=== PATIENT | female | born 1960 | race Caucasian/White ===

== ENCOUNTER 2021-08-03 07:34 | Inpatient (IN) | payer BC ==
[~2021-08-03] VITALS: Ht 162.6 cm; Wt 105.3 kg
[~2021-08-03 07:34] MED LIST: ATEN100; ATEN50 PO; FURO40 PO; IBUP800; LEVSOD200; THYR60; TRIHYD253B
[2021-08-03 08:25] LABS: Calcium, Ionized (POC) 1.22 mmol/L (1.10-1.46); Chloride (POC) 101 mmol/L (98-108); Creatinine (POC) 0.6 mg/dL (0.6-1.0); Glucose (ISTAT POC) 168 mg/dL (70-99); Potassium (POC) 3.6 mmol/L (3.5-5.5); Sodium (POC) 140 mmol/L (135-148); Total CO2 (POC) 28 mmol/L (21-32)
[2021-08-03 08:29] LABS: BASOPHILS ABSOLUTE AUTO 0.05 K/mm3 (0.00-0.23); BASOPHILS PERCENT AUTO 1 % (0-2); EOSINOPHILS ABSOLUTE AUTO 0.12 K/mm3 (0.00-0.68); EOSINOPHILS PERCENT AUTO 2 % (0-6); Hematocrit 42.5 % (33.0-51.0); Hemoglobin 13.9 g/dL (11.5-16.0); IMMATURE GRAN ABSOLUTE AUTO 0.03 K/mm3 (0.00-0.10); IMMATURE GRAN PERCENT AUTO 0 % (0-1); LYMPHOCYTES ABSOLUTE AUTO 1.33 K/mm3 (0.84-5.20); LYMPHOCYTES PERCENT AUTO 18 % (21-46); MONOCYTES ABSOLUTE AUTO 0.45 K/mm3 (0.16-1.47); MONOCYTES PERCENT AUTO 6 % (4-13); Mean Corpuscular HGB 30.7 pg (26.0-34.0); Mean Corpuscular HGB Conc 32.7 g/dL (31.5-36.5); Mean Corpuscular Volume 94 fL (80-100); Mean Platelet Volume 10.9 fL (9.1-12.4); NEUTROPHILS ABSOLUTE AUTO 5.64 K/mm3 (1.96-9.15); NEUTROPHILS PERCENT AUTO 74 % (41-73); Platelet Count 121 K/mm3 (150-400); RDW Coefficient Variation 13.3 % (11.7-14.2); Red Blood Cell Count 4.53 M/mm3 (3.80-5.20); White Blood Cell Count 7.62 K/mm3 (4.00-11.30)
[2021-08-03] MEDS ORDERED: ATORVASTATIN CA20 MG PO (08:44)
[2021-08-03] MEDS ORDERED: METFORMIN HCL500 M3 PO (08:45)
[2021-08-03] MEDS ORDERED: LISI20 PO (08:45)
[2021-08-03] MEDS ORDERED: SYNTHROID175 MC1 PO (08:45)
[2021-08-03 08:50] LABS: Alanine Aminotransfer (ALT/SGP 52 U/L (12-78); Albumin, Blood 4.1 g/dL (3.4-5.0); Alk Phos 117 U/L (50-136); Anion Gap 7 mmol/L (6-16); Aspartate Aminotrans (AST/SGOT 40 U/L (12-37); Bilirubin, Total 1.3 mg/dL (0.1-1.0); Blood Urea Nitrogen 21 mg/dL (8-24); Bun/Creatinine Ratio 34.1 (12.0-20.0); CHOL/HDL RATIO 2.1; CO2, Blood 29 mmol/L (21-32); Calcium, Blood 9.6 mg/dL (8.5-10.1); Chloride, Blood 104 mmol/L (98-108); Cholesterol 107 mg/dL (50-200); Creatinine, Blood 0.62 mg/dL (0.40-1.00); Globulin, Blood 4.2 g/dL (2.2-4.0); Glomerular Filtration Rate >60 (60-); Glucose, Blood 166 mg/dL (70-99); HDL Cholesterol 50 mg/dL (>39); LDL/HDL RATIO 0.8; Low Density Lipoprotein Chol 38 mg/dL (0-110); Magnesium, Blood 1.8 mg/dL (1.6-2.4); Potassium, Blood 3.6 mmol/L (3.5-5.5); Sodium, Blood 140 mmol/L (136-145); Total Protein, Blood 8.3 g/dL (6.4-8.2); Triglycerides 95 mg/dL (30-160); Very Low Density Lipoprot Chol 19 mg/dL (6-32)
[2021-08-03 10:16] LABS: Influenza A, PCR NEGATIVE (NEGATIVE); Influenza B, PCR NEGATIVE (NEGATIVE); Resp Syncytial Virus, PCR NEGATIVE (NEGATIVE); SARS-Cov-2 (COVID-19) PCR, MMC NEGATIVE (NEGATIVE)
[2021-08-03 10:59] LABS: Anti-Xa UFH, PHA Monitoring <0.10 IU/mL; International Normalized Ratio 1.03; Prothrombin Time Results 10.8 Sec (9.7-11.5)
--- NOTE | 2021-08-03 14:37 | NUR ---
ARRIVAL TO PCU PATIENT ARRIVED TO PCU UNIT FROM [facility] AT 1302. PATIENT ARRIVED VIA PCU BED. PATIENT IS ALERT AND ORIENTED X4. PERRLA. NEURO IS INTACT. PATIENT REPORTS NO PAIN, CHEST PAIN, OR SHORTNES OF BREATH. PATIENT HAD [address]ED. PATIENT HAS RIGHT RADIAL SITE FROM ANGIO. IT HAD THE TRBAND IN PLACE WITH 11CC. THERE IS NO TENDERNESS, BLEEDING, REDDNESS AT SITE. PATIENT AMBULATES BY A STAND BY ASSIST. PATIENT WAS EDUCATED ON PROCEDURE AND ACTIVITY RESTRICTIONS FOR HER RIGHT ARM. VSS, PATIENT BLOOD PRESSURE IS A LITTLE ON THE HYPERTENSIVE SIDE, BUT RECEIVED MEDICATIONS FOR THIS. PATIENT USED CALL LIGHT APPRORPIATELY AND IS ABLE TO MAKE ALL NEEDS KNOWN. CALL LIGHT WITHIN REACH AND BED IN LOWEST POSITION. WILL CONTINUE TO MONITOR AND PROVIDE CARE.
--- NOTE | 2021-08-03 17:17 | NUR ---
SHIFT SUMMARY PATIENT NEURO REMAINS INTACT. PATIENT RIGHT RADAIL SITE IS CLEAN, DRY, INTACT, AND NO BLEEDING OR HEMATOMA. PATIENT HAS A BRUISE ON HER RIGHT FOREARM AND A SMALL HEMATOMA NOTED. PATIENT STATED THIS WAS THERE AFTER THE PROCEDURE. CURRENTLY DEFLATING THE TR BAND. PATIENT BLOOD PRESSURE WAS HYPERTENSIVE AND RECEIVED IV AND PO BLOOD PRESSURE MEDICATION. SEE EMAR. CALL LIGHT WITHIN REACH AND FAMILY AT BED SIDE. WILL CONTINUE TO MONITOR AND PROVIDE CARE.
--- NOTE | 2021-08-03 19:45 | NUR ---
ASSUMED PT CARE FORM BRENDEN DIEZ ON DAY SHIFT. PT IS SITTING UP IN BED VISITING WITH FAMILY. A&OX3. TR BAND REMOVED AT 1925 PER INSTRUCTIONS AND TRANSPARENT WINDOW DRESSING APPLIED TO SITE. NOT DRAINAGE, SWELLING, OR FIRMNESS NOTED. ARM BOARD PLACE ON PT WRIST, INSTRUCTED NOT TO MOVE WRIST FOR FIRST 24 HOURS. PT STATES UNDERSTANDING. FAMILY ATTENTIVE AT BEDSIDE. SAFEYT MEASURES IN PLACE.
--- NOTE | 2021-08-03 20:10 | NUR ---
PT MEDICATERD FOR ANXIETY, SEE EMAR. PT STATES SHE HAS CHEST SORENESS AT 5/10. WILL REASSESS TO SEE IF ATIVAN HELPS WITH THIS. PT DENIES ANY SOB. SAFETY MEASURES IN PLACE.
--- NOTE | 2021-08-03 20:51 | NUR ---
IV DRIP FOR BLOOD THINNNER DISCONTINUED PER ORDERS. PT REPORTS "FEELING A LITTLE BETTER". LEFT RESITNG IN ROOM WITH EYES CLOSED. SAFEY MEASURES IN PLACE.
[2021-08-03] MEDS ORDERED: HYDCHL25 PO (23:24)
[2021-08-03] MEDS ORDERED: LOSA50 PO (23:25)
[2021-08-03] MEDS ORDERED: ATOR20 PO (23:26)
[2021-08-03] MEDS ORDERED: NYSTATIN TOP (23:30)
--- NOTE | 2021-08-04 02:19 | NUR ---
PT RESTING IN BED WITH EYES CLOSED, APPEARS TO BE SLEEPING. NO VISIBLE SIGNS OF DISTRESS. SAFETY MEASURES IN PLACE.
[2021-08-04 03:58] LABS: BASOPHILS ABSOLUTE AUTO 0.03 K/mm3 (0.00-0.23); BASOPHILS PERCENT AUTO 0 % (0-2); EOSINOPHILS ABSOLUTE AUTO 0.03 K/mm3 (0.00-0.68); EOSINOPHILS PERCENT AUTO 0 % (0-6); Hematocrit 36.9 % (33.0-51.0); Hemoglobin 12.2 g/dL (11.5-16.0); IMMATURE GRAN ABSOLUTE AUTO 0.03 K/mm3 (0.00-0.10); IMMATURE GRAN PERCENT AUTO 0 % (0-1); LYMPHOCYTES ABSOLUTE AUTO 1.33 K/mm3 (0.84-5.20); LYMPHOCYTES PERCENT AUTO 14 % (21-46); MONOCYTES ABSOLUTE AUTO 0.69 K/mm3 (0.16-1.47); MONOCYTES PERCENT AUTO 7 % (4-13); Mean Corpuscular HGB Conc 33.1 g/dL (31.5-36.5); Mean Corpuscular Volume 94 fL (80-100); Mean Platelet Volume 11.2 fL (9.1-12.4); NEUTROPHILS ABSOLUTE AUTO 7.22 K/mm3 (1.96-9.15); NEUTROPHILS PERCENT AUTO 77 % (41-73); Platelet Count 143 K/mm3 (150-400); RDW Coefficient Variation 13.4 % (11.7-14.2); RDW Standard Deviation 46.4 fL (35.1-46.3); Red Blood Cell Count 3.93 M/mm3 (3.80-5.20); White Blood Cell Count 9.33 K/mm3 (4.00-11.30)
[2021-08-04 04:24] LABS: Anion Gap 6 mmol/L (6-16); Blood Urea Nitrogen 14 mg/dL (8-24); Bun/Creatinine Ratio 26.7 (12.0-20.0); CO2, Blood 29 mmol/L (21-32); Calcium, Blood 9.1 mg/dL (8.5-10.1); Chloride, Blood 104 mmol/L (98-108); Creatinine, Blood 0.53 mg/dL (0.40-1.00); Glomerular Filtration Rate >60 (60-); Glucose, Blood 129 mg/dL (70-99); Potassium, Blood 3.4 mmol/L (3.5-5.5); Sodium, Blood 139 mmol/L (136-145); Thyroid Stimulating Hormone 0.877 uIU/mL (0.360-4.800); Thyroxine (T4) 12.2 ug/dL (4.8-13.9)
--- NOTE | 2021-08-04 04:40 | NUR ---
PT UP TO BSC WITH FWW AND 1 ASSIST. PT REPORTS FEELING STRONGER THIS A.M. ABLE TO DRAW LABS THROUGH POWERGLYDE WITH DIFFICUTLY DUE TO ACCESS BEING POSITIONAL. PT REPORTS NO DISCOMFORT WHEN FLUSHING, NO SWELLING NOTED. RETURNED TO BED. WOUND ON COCCYX PHOTOGRAPHED WITH PT CONSENT. PT REPORTS PRIMARY STATED IT WAS A FUNGAL INFECTION AND GAVE HER ANTIFUNGAL PERSCRIPTION FOR HOME. LEFT RESITNG IN BED. SAFETY MEASURES IN PLACE.
[2021-08-04] MEDS ORDERED: ASPI81CH PO (11:24)
[2021-08-04] MEDS ORDERED: AMLO5 PO (11:24)
[2021-08-04] MEDS ORDERED: HYDRA25 PO (11:25)
[2021-08-04] MEDS ORDERED: METO25ER PO (11:26)
[2021-08-04] MEDS ORDERED: NITR.4SL SL (11:26)
[2021-08-04] MEDS ORDERED: TICA90TA PO (11:27)
--- NOTE | 2021-08-04 13:00 | NUR ---
DISHCARGE SUMMARY: PATIENT HAS HAD BOTH IV'S REMOVED. TELEMETRY REMOVED. INSTRUCTIONS AND EDUCATION GIVEN ON THE IMPORTANCE OF MEDICATION ADHERENCE AND CRITICAL UPCOMING APPOINTMENTS. PATIENT HAD CLEAR UNDERSTANDING WITH ACCOMPANING WRITTEN INSTRUCTIONS AND INFORMATION IN CHART PROVIDED. BLOOD PRESSURE HAS BEEN BETTER THAN PREVIOUS DAY. RRADIAL SITE CDI WITH A NEW TAGADERM PLACED. PATIENT ESCORTED BY DRUG ABUSE WORKER, NO FURTHER QUESTIONS COMMENTS OR CONCERNS. DENIES CHEST PAIN OR SOB WITH EXERTION.
== END 2021-08-04 13:05 | disposition home or self-care (01) | DRG 247 ==
LOC: ER 07:34 → PCU 11:15
PROVIDERS: Emergency Medicine; Internal Medicine Cardiovascular Disease; ADMIT Internal Medicine
PROC: 4A023N7 Measurement of Cardiac Sampling and Pressure, Left Heart, Percutaneous Approach (ICD-10-PCS; principal; 2021-08-03)
PROC: 027034Z Dilation of Coronary Artery, One Artery with Drug-eluting Intraluminal Device, Percutaneous Approach (ICD-10-PCS; 2021-08-03)
PROC: B2111ZZ Fluoroscopy of Multiple Coronary Arteries using Low Osmolar Contrast (ICD-10-PCS; 2021-08-03)
DX: I21.4 Non-ST elevation (NSTEMI) myocardial infarction (principal); I16.1 Hypertensive emergency; Z20.822 Contact with and (suspected) exposure to COVID-19; E11.9 Type 2 diabetes mellitus without complications; F41.9 Anxiety disorder, unspecified; E88.81 Metabolic syndrome and other insulin resistance; E78.00 Pure hypercholesterolemia, unspecified; I10 Essential (primary) hypertension; E78.5 Hyperlipidemia, unspecified; E03.9 Hypothyroidism, unspecified; Z90.49 Acquired absence of other specified parts of digestive tract; Z90.722 Acquired absence of ovaries, bilateral; Z90.710 Acquired absence of both cervix and uterus; Z79.899 Other long term (current) drug therapy
CPT/HCPCS: 0241U; 36415; 71045; 80047; 80048; 80053; 80061; 82947; 83036; 83735; 84436; 84443; 84484; 85014; 85025; 85347; 85520; 85610; 86850; 86900; 86901; 93005; 93010; 93306; 93454; 96374; 99152; 99153; 99285-25; A9270; C1725; C1769; C1874; C1887; C1894; C9600; C9601; J0153; J0360; J1644; J2250; J3010; J3246; J7030; J7050; Q9967

== ENCOUNTER 2024-07-12 17:17 | Emergency (ER) | payer OTHER ==
[~2024-07-12] VITALS: Ht 165.1 cm; Wt 115.2 kg
[~2024-07-12 17:17] MED LIST changes: +AMLO5 PO; +ASPI81CH PO; +ATOR20 PO; +ATORVASTATIN CA20 MG PO; +HYDCHL25 PO; +HYDRA25 PO; +LISI20 PO; +LOSA50 PO; +METFORMIN HCL500 M3 PO; +METO25ER PO; +NITR.4SL SL; +NYSTATIN TOP; +SYNTHROID175 MC1 PO; +TICA90TA PO
[2024-07-12 17:23] VITALS: BP 248/135
[2024-07-12] MEDS ORDERED: Lisinopril 5 MG Tab PO ONE (23:00)
[2024-07-12] MEDS ORDERED: HydrALAZINE HCl 25 MG Tab PO ONE (23:00)
[2024-07-12] MEDS ORDERED: HYDRA25 PO (23:08)
[2024-07-13] MEDS ORDERED: Lisinopril 5 MG Tab PO SCH (09:00)
== END 2024-07-12 23:07 | disposition home or self-care (01) ==
LOC: ER 17:17
DX: I10 Essential (primary) hypertension (principal); T46.5X6A Underdosing of other antihypertensive drugs, initial encounter; E78.5 Hyperlipidemia, unspecified; E03.9 Hypothyroidism, unspecified; Z91.148 Patient's other noncompliance with medication regimen for other reason; Z79.890 Hormone replacement therapy; Z79.84 Long term (current) use of oral hypoglycemic drugs; Z79.82 Long term (current) use of aspirin; Z79.899 Other long term (current) drug therapy
CPT/HCPCS: 36415; 93005; 93010; 99283-25; A9270